=== PATIENT | female | born 1955 | race Two or more races ===

== ENCOUNTER 2017-04-10 12:16 | Day surgery (SDC) | payer BC ==
[2017-04-10] MEDS ORDERED: MIDAZOLAM 1 MG/ML 2 ML INJ ×2 (14:18)
[2017-04-10] MEDS ORDERED: FENTAnyl 50 MCG/ML VIAL (14:18)
== END 2017-04-10 15:50 | disposition home or self-care (01) ==
LOC: GIL 12:16
DX: Z12.11 Encounter for screening for malignant neoplasm of colon (principal); E78.5 Hyperlipidemia, unspecified
CPT/HCPCS: 45378